=== PATIENT | male | born 1945 | race Caucasian/White ===

== ENCOUNTER 2020-08-03 12:25 | Emergency (ER) | payer MEDICARE, OTHER ==
[~2020-08-03] VITALS: Ht 172.7 cm; Wt 83.9 kg
[2020-08-03] MEDS ORDERED: MECLIZINE HCL 25 MG TAB PO ONE (12:45)
[2020-08-03 14:44] LABS: Basophils # (auto) 0 10 ^3/uL (0-0.2); Basophils % (auto) 0.5 % (0.0-2.0); Eosinophils # (auto) 0.1 10 ^3/uL (0-0.8); Eosinophils % (auto) 1.8 % (0.0-7.0); Hemoglobin 15.8 g/dL (13.5-17.5); Lymphocytes # (auto) 1.6 10 ^3/uL (0.4-5.4); Lymphocytes % (auto) 27.7 % (10.0-50.0); Mean Corpuscular Hgb Conc. 34.3 g/dL (32.0-36.0); Mean Corpuscular Volume 90.1 fL (80.0-100.0); Monocytes # (auto) 0.4 10 ^3/uL (0-1.3); Monocytes % (auto) 6.2 % (0.0-12.0); Neutrophils # (auto) 3.7 10 ^3/uL (1.6-8.6); Neutrophils % (auto) 63.8 % (37.0-80.0); Nucleated Red Blood Cells % 0.3 %; Red Blood Cells 5.11 10^6/uL (4.5-5.90); Red Cell Distribution Width 13.3 % (11.8-14.3); White Blood Cell 5.8 10^3/uL (4.4-10.8)
[2020-08-03] MEDS ORDERED: LABETALOL HCL 5 MG/ML 4ML SYRINGE IV ONE (15:00)
[2020-08-03 15:02] LABS: Chloride 106 mmol/L (98-107); Potassium 3.8 mmol/L (3.5-5.1); Sodium 139 mmol/L (136-145)
[2020-08-03 15:07] VITALS: BP 157/80
[2020-08-03 15:13] LABS: Alanine Aminotransferase 24 U/L (16-61); Albumin 3.6 g/dL (3.4-5.0); Alkaline Phosphatase 78 U/L (45-117); Anion Gap 3 (5-15); Aspartate Aminotransferase 17 U/L (15-37); BUN/Creatinine Ratio 17.9; Bilirubin, Total 0.6 mg/dL (0.2-1.0); Blood Urea Nitrogen 10 mg/dL (7-18); Calcium 8.7 mg/dL (8.5-10.1); Carbon Dioxide 30 mmol/L (21-32); GFR African American 182 mL/min; GFR Non-African American 151 mL/min; Glucose 89 mg/dL (74-106); Total Protein 7.1 g/dL (6.4-8.2)
== END 2020-08-03 15:29 | disposition designated cancer center or children's hospital (05) ==
LOC: ER 12:25 → EDSEX 12:25 → ER 15:04
DX: S06.300A Unspecified focal traumatic brain injury without loss of consciousness, initial encounter (principal); I16.1 Hypertensive emergency; H93.13 Tinnitus, bilateral; X58.XXXA Exposure to other specified factors, initial encounter; Y93.89 Activity, other specified; Y92.89 Other specified places as the place of occurrence of the external cause; Y99.8 Other external cause status
CPT/HCPCS: 36415; 70450; 71045; 80053; 84484; 85025; 93005; 96365; 96375; 99291; J3490

== ENCOUNTER 2020-11-30 12:49 | Emergency (ER) | payer MEDICARE ==
[~2020-11-30] VITALS: Ht 172.7 cm; Wt 59.8 kg
[2020-11-30 12:50] VITALS: BP 128/61
== END 2020-11-30 13:55 | disposition home or self-care (01) ==
LOC: ER 12:49
DX: I80.3 Phlebitis and thrombophlebitis of lower extremities, unspecified (principal); E78.5 Hyperlipidemia, unspecified; I10 Essential (primary) hypertension; F17.210 Nicotine dependence, cigarettes, uncomplicated; Z86.73 Personal history of transient ischemic attack (TIA), and cerebral infarction without residual deficits
CPT/HCPCS: 93971